=== PATIENT | female | born 1975 | race American Indian/Alaskan Native ===

== ENCOUNTER 2022-08-18 06:39 | Day surgery (SDC) | payer BC, OTHER ==
[~2022-08-18 06:39] MED LIST: Acetaminophen 1,000 MG in Premix Bag 1 BAG IV SCH; Lactated Ringers 1,000 ML IV SCH; Pregabalin 75 MG Cap PO SCH; cefOXitin 2 GM in Premix Bag 1 BAG IV SCH
[2022-08-18] MEDS ORDERED: Scopolamine 1.5 MG Transdermal Patch TOP ONE (06:52)
[2022-08-18] MEDS ORDERED: Scopolamine 1.5 MG Transdermal Patch ONE (06:53)
[2022-08-18] MEDS ORDERED: Bupivacaine 0.25% 30 ML SDV ONE ×2 (07:22→07:50)
[2022-08-18] MEDS ORDERED: Morphine 2 MG/ML SYRINGE IVPUSH PRN (07:29)
[2022-08-18] MEDS ORDERED: Dexmedetomidine 200 MCG/2 ML SDV ONE (07:29)
[2022-08-18] MEDS ORDERED: Metoclopramide 10 MG/2 ML SDV IVPUSH PRN (07:29)
[2022-08-18] MEDS ORDERED: Propofol 200 MG/20 ML SDV ONE (07:29)
[2022-08-18] MEDS ORDERED: fentaNYL 100 MCG/2 ML SDV ONE (07:29)
[2022-08-18] MEDS ORDERED: Albuterol 0.083% 2.5 MG/3 ML Neb Soln NEB PRN (07:29)
[2022-08-18] MEDS ORDERED: Ondansetron 4 MG/2 ML SDV IVPUSH PRN (07:29)
[2022-08-18] MEDS ORDERED: fentaNYL 50 MCG/ML SDV IVPUSH PRN (07:29)
[2022-08-18] MEDS ORDERED: HYDROmorphone 1 MG/ML Syringe IVPUSH PRN (07:29)
[2022-08-18] MEDS ORDERED: Naloxone 0.4 MG/ML SDV IVPUSH PRN (07:29)
[2022-08-18] MEDS ORDERED: Water For Injection, Sterile 20 ML ONE (07:30)
[2022-08-18] MEDS ORDERED: Rocuronium Bromide 50 MG/5 ML Syringe ONE ×2 (07:48→09:00)
[2022-08-18] MEDS ORDERED: Lidocaine 2% 5 ML SDV ONE (07:48)
[2022-08-18] MEDS ORDERED: cefOXitin 1 GM Vial ONE (08:10)
[2022-08-18] MEDS ORDERED: Indocyanine Green 25 MG SDV ONE (08:10)
[2022-08-18] MEDS ORDERED: Magnesium Sulfate (4.06 MEQ/ML) 5 GM/10 ML SDV ONE (08:11)
[2022-08-18] MEDS ORDERED: Dexamethasone 4 MG/ML 5 ML MDV ONE (08:27)
[2022-08-18] MEDS ORDERED: ePHEDrine 50 MG/ML SDV ONE (08:39)
[2022-08-18] MEDS ORDERED: Ketorolac 30 MG/ML SDV ONE (09:22)
[2022-08-18] MEDS ORDERED: Ondansetron 4 MG/2 ML SDV ONE (09:22)
[2022-08-18] MEDS ORDERED: Sugammadex Sodium 200 MG/2 ML VIAL ONE (09:22)
== END 2022-08-18 13:09 | disposition home or self-care (01) ==
LOC: MW.SDS 06:39
PROVIDERS: ATTEND Surgery
DX: K80.10 Calculus of gallbladder with chronic cholecystitis without obstruction (principal); K31.89 Other diseases of stomach and duodenum; G43.909 Migraine, unspecified, not intractable, without status migrainosus; D64.9 Anemia, unspecified; E66.9 Obesity, unspecified; M79.7 Fibromyalgia; Z68.34 Body mass index [BMI] 34.0-34.9, adult; Z98.890 Other specified postprocedural states; Z79.899 Other long term (current) drug therapy
CPT/HCPCS: 47562; 81025; A9270; J0131; J0694; J1100; J1885; J2405; J2704; J3010; J3475; J3490; J7030; J7120; 00790; 64488